=== PATIENT | female | born 1970 | race Caucasian/White ===

== ENCOUNTER 2017-10-31 19:27 | Emergency (ER) | payer MEDICAID ==
[~2017-10-31] VITALS: Ht 157.5 cm; Wt 113.4 kg
[2017-10-31 19:29] VITALS: BP_SYST 171
[2017-10-31] MEDS ORDERED: IPRATROPIUM/ALBUTEROL SULFATE 3 ML AMPUL.NEB INH ONE (19:30)
[2017-10-31] MEDS ORDERED: methylPREDNISolone SOD SUCC/PF 62.5 MG/ML VIAL IM ONE (19:30)
[2017-10-31] MEDS ORDERED: MAGNESIUM SULFATE 50 ML IV ONE (20:15)
[2017-10-31] MEDS ORDERED: IPRATROPIUM BROM 0.5 MG/2.5 ML VIAL.NEB (ATROVENT) IH ONE (20:15)
[2017-10-31] MEDS ORDERED: ALBUTEROL SULFATE 0.083% 2.5 MG/3 ML VIAL.NEB IH ONE (20:15)
[2017-10-31 21:48] VITALS: BP_SYST 142
== END 2017-10-31 21:48 | disposition home or self-care (01) ==
LOC: SED 19:27
DX: J45.901 Unspecified asthma with (acute) exacerbation (principal); R03.0 Elevated blood-pressure reading, without diagnosis of hypertension
CPT/HCPCS: 94640; 96365; 96366; 96372; 99285; J2930; J3475

== ENCOUNTER 2018-01-16 20:49 | Emergency (ER) | payer MEDICAID ==
[~2018-01-16] VITALS: Ht 154.9 cm; Wt 111.1 kg
[2018-01-16 20:52] VITALS: BP_SYST 162
[2018-01-16] MEDS ORDERED: methylPREDNISolone SOD SUCC/PF 62.5 MG/ML VIAL IM ONE (22:15)
[2018-01-16] MEDS ORDERED: PREDNISONE 20 MG TABLET PO ONE (22:15)
[2018-01-16] MEDS ORDERED: IPRATROPIUM BROM 0.5 MG/2.5 ML VIAL.NEB (ATROVENT) IH ONE (22:15)
[2018-01-16] MEDS ORDERED: LevALBUTEROL HCL 1.25 MG/0.5 ML *CONC.* VIAL.NEB (XOPENEX CONC.) INH ONE (22:15)
[2018-01-16 22:58] VITALS: BP_SYST 148
== END 2018-01-16 22:58 | disposition home or self-care (01) ==
LOC: SED 20:49
DX: J45.901 Unspecified asthma with (acute) exacerbation (principal); F17.200 Nicotine dependence, unspecified, uncomplicated; F31.9 Bipolar disorder, unspecified; I10 Essential (primary) hypertension; Z90.49 Acquired absence of other specified parts of digestive tract
CPT/HCPCS: 94640; 96372; 99283; J2930; J7512; J7612

== ENCOUNTER 2018-03-31 10:07 | Emergency (ER) | payer MEDICAID ==
[~2018-03-31] VITALS: Ht 154.9 cm; Wt 109.8 kg
[2018-03-31 10:07] VITALS: BP_SYST 139
[2018-03-31 10:39] LABS: BASOPHILS # (AUTO) 0.1 K/uL (0.0-0.2); EOSINOPHILS # (AUTO) 0.2 K/uL (0.0-0.4); LYMPHOCYTES # (AUTO) 1.3 K/uL (1.0-5.5); MEAN CORPUSCULAR VOLUME 75 fL (79.0-98.0); NEUTROPHILS # (AUTO) 5.1 K/uL (1.8-7.7)
[2018-03-31 10:51] LABS: CALCIUM 8.6 mg/dL (8.4-11.0); CREATININE 0.65 mg/dL (0.55-1.30); POTASSIUM 3.6 mmol/L (3.5-5.1)
[2018-03-31 10:53] LABS: BASOPHILS % (AUTO) 0.7 % (0.0-2.0); EOSINOPHILS % (AUTO) 2.5 % (0.0-4.0); HEMATOCRIT 33.6 % (36-48); HEMOGLOBIN 10.7 g/dL (12.0-16.0); LYMPHOCYTES % (AUTO) 18.4 % (20.5-51.5); MEAN CORPUSCULAR HEMOGLOBIN 24 pg (27-31); MEAN CORPUSCULAR HGB CONC 32 % (32-36); MONOCYTES # (AUTO) 0.5 K/uL (0.0-1.0); MONOCYTES % (AUTO) 6.3 % (1.7-9.3); NEUTROPHILS % (AUTO) 72.1 % (40.0-70.0); PLATELET COUNT (AUTO) 610 K/uL (130-430); RED CELL DISTRIBUTION WIDTH 16.4 % (9.0-15.0); WHITE BLOOD COUNT (AUTO) 7.2 K/uL (4.8-10.8)
[2018-03-31 10:58] LABS: ALBUMIN 3.1 g/dL (3.4-4.8); TOTAL BILIRUBIN 0.1 mg/dL (0.0-1.0)
[2018-03-31] MEDS ORDERED: IPRATROPIUM BROM 0.5 MG/2.5 ML VIAL.NEB (ATROVENT) IH ONE (11:00)
[2018-03-31] MEDS ORDERED: PREDNISONE 20 MG TABLET PO ONE (11:00)
[2018-03-31] MEDS ORDERED: ALBUTEROL SULFATE 0.083% 2.5 MG/3 ML VIAL.NEB IH ONE (11:00)
[2018-03-31 11:37] LABS: BILIRUBIN,URINE NEGATIVE (NEGATIVE); BLOOD, URINE 2+ (NEGATIVE); CLARITY/URINE HAZY (CLEAR); COLOR,URINE YELLOW (YELLOW); GLUCOSE,URINE NEGATIVE (NEGATIVE); KETONES,URINE NEGATIVE (NEGATIVE); LEUKOCYTE ESTERASE ,URINE NEGATIVE (NEGATIVE); NITRITE, URINE NEGATIVE (NEGATIVE); PH,URINE 7.5 (5.0-8.0); PROTEIN URINE NEGATIVE (NEGATIVE); UROBILINOGEN,URINE 0.2 (0.2-1.0)
[2018-03-31 11:48] LABS: BACTERIA,URINE MODERATE /HPF (None Seen); MUCUS,URINE 1+ /LPF (None Seen); WBC,URINE 0-3 /HPF (0-3)
[2018-03-31 11:56] VITALS: BP_SYST 131
== END 2018-03-31 11:56 | disposition home or self-care (01) ==
LOC: SED 10:07
DX: N76.0 Acute vaginitis (principal); J45.901 Unspecified asthma with (acute) exacerbation; F31.9 Bipolar disorder, unspecified; Z97.5 Presence of (intrauterine) contraceptive device; Z90.49 Acquired absence of other specified parts of digestive tract; Z87.891 Personal history of nicotine dependence
CPT/HCPCS: 36415; 80053; 81000; 85025; 87086; 94640; 99284; J7512; J7613

== ENCOUNTER 2018-06-05 21:12 | Emergency (ER) | payer MEDICAID ==
[~2018-06-05] VITALS: Ht 154.9 cm; Wt 110.2 kg
[2018-06-05 21:21] VITALS: BP_SYST 153
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
--- NOTE | 2018-06-05 21:21 | NUR ---
Pt placed to ER bed 03, to bed teacher. Pt states that she has been experiencing SOB with asthma attack progressively worsening x 3 days. Pt also states that she has been coughing up green sputum, inspiratory wheezing noted, diminished to bases. Pt speaks in clear sentences, SPO2 98%.
--- NOTE | 2018-06-05 21:28 | NUR ---
Dr. Aleman at bedside.
[2018-06-05] MEDS ORDERED: IPRATROPIUM/ALBUTEROL SULFATE 3 ML AMPUL.NEB (DUONEB) INH ONE ×2 (21:30→22:45)
[2018-06-05] MEDS ORDERED: methylPREDNISolone SOD SUCC/PF 62.5 MG/ML VIAL IM ONE (21:30)
--- NOTE | 2018-06-05 21:41 | NUR ---
RT at bedside. Alphonso tx in progress.
--- NOTE | 2018-06-05 22:45 | NUR ---
Pt with mild inspiratory wheezes. RT at bedside, another Neb tx in progress. Pt verbalizes improvement in respirations.
--- NOTE | 2018-06-05 23:00 | NUR ---
Pt states that she feels much better and feels like she can breathe better. VSS. SPO2 98% RA.
[2018-06-05 23:18] VITALS: BP_SYST 144
--- NOTE | 2018-06-05 23:18 | NUR ---
Patient given written and verbal discharge instructions and verbalizes understanding. ER MD Lazar discussed with patient the results and treatment provided. Patient in stable condition. ID arm band removed. Rx of Prednisone given. Patient educated on pain management and to follow up with PMD. Pain Scale 0. Opportunity for questions provided and answered. Medication side effect fact sheet provided.
== END 2018-06-05 23:18 | disposition home or self-care (01) ==
LOC: SED 21:12
DX: J45.901 Unspecified asthma with (acute) exacerbation (principal); R03.0 Elevated blood-pressure reading, without diagnosis of hypertension; F31.9 Bipolar disorder, unspecified
CPT/HCPCS: 94640; 96372; 99284; J2930; J7620

== ENCOUNTER 2018-06-26 05:05 | Emergency (ER) | payer MEDICAID ==
[~2018-06-26] VITALS: Ht 154.9 cm; Wt 110.2 kg
--- NOTE | 2018-06-26 05:15 | NUR ---
Patient to ER bed 8 to gown for evaluation. Side rails up. Report given from JAMES Weldon.
--- NOTE | 2018-06-26 05:20 | NUR ---
ER Dr.Au Hernandez at bedside examining patient.
[2018-06-26 05:25] VITALS: BP_SYST 150
--- NOTE | 2018-06-26 05:25 | NUR ---
Pt came in complaining of nausea and vomitting which started early this morning around 0000. Pt states that she ate spaghetti and pork sausage last night for dinner and there is a possibility that the meat may not have been cooked all the way. Pt says that she feels chills, but no fever. Pt's is at bedside and says that he ate the same thing but does not feel sick. History of asthma and bipolar. No other complaints/injuries noted. Will cont. to monitor.
[2018-06-26] MEDS ORDERED: NACL 0.9% 1,000 ML IV ONE ×2 (05:38→06:51)
[2018-06-26] MEDS ORDERED: ONDANSETRON HCL 4 MG/2 ML VIAL IVP ONE ×2 (05:45→07:30)
[2018-06-26] MEDS ORDERED: MORPHINE 4 MG/ML INJ. SYRINGE IVP ONE ×2 (05:45→07:45)
--- NOTE | 2018-06-26 06:08 | NUR ---
Pt medicated with morphine IVP, zofran IVP and fluids per MD order. Tolerating well. Will cont. to monitor.
[2018-06-26 06:26] LABS: BASOPHILS # (AUTO) 0.1 K/uL (0.0-0.2); BASOPHILS % (AUTO) 0.4 % (0.0-2.0); EOSINOPHILS # (AUTO) 0.1 K/uL (0.0-0.4); EOSINOPHILS % (AUTO) 0.6 % (0.0-4.0); HEMOGLOBIN 11.3 g/dL (12.0-16.0); LYMPHOCYTES # (AUTO) 0.4 K/uL (1.0-5.5); LYMPHOCYTES % (AUTO) 3.1 % (20.5-51.5); MEAN CORPUSCULAR HEMOGLOBIN 24 pg (27-31); MEAN CORPUSCULAR HGB CONC 31 % (32-36); MEAN CORPUSCULAR VOLUME 75 fL (79.0-98.0); MONOCYTES # (AUTO) 0.4 K/uL (0.0-1.0); MONOCYTES % (AUTO) 2.8 % (1.7-9.3); NEUTROPHILS # (AUTO) 12.4 K/uL (1.8-7.7); NEUTROPHILS % (AUTO) 93.1 % (40.0-70.0); PLATELET COUNT (AUTO) 707 K/uL (130-430); RED BLOOD CELL COUNT(AUTO) 4.79 MIL/uL (4.2-6.2); RED CELL DISTRIBUTION WIDTH 16.2 % (9.0-15.0); WHITE BLOOD COUNT (AUTO) 13.4 K/uL (4.8-10.8)
[2018-06-26 06:37] LABS: CALCIUM 9.2 mg/dL (8.4-11.0); CREATININE 0.72 mg/dL (0.55-1.30); POTASSIUM 3.4 mmol/L (3.5-5.1)
[2018-06-26 06:43] LABS: ALBUMIN 3.4 g/dL (3.4-4.8); TOTAL BILIRUBIN 0.5 mg/dL (0.0-1.0)
--- NOTE | 2018-06-26 07:08 | NUR ---
Report given to Noah RAMIREZ and Delonte RAMIREZ
[2018-06-26] MEDS ORDERED: KETOROLAC TROMETHAMINE 30 MG VIAL IVP ONE (07:15)
--- NOTE | 2018-06-26 07:26 | NUR ---
Pt medicated for 8/10 abdominal pain. Pt tolerated medication administration well, will reassess pain at a later time.
--- NOTE | 2018-06-26 08:24 | NUR ---
Dr. Ventura at bedside examining pt.
[2018-06-26] MEDS ORDERED: fentaNYL CITRATE/PF 100 MCG/2 ML AMP IVP ONE (08:30)
[2018-06-26 08:40] LABS: BARBITURATE, URINE NEGATIVE (NEG <=200); BENZODIAZEPINE, URINE NEGATIVE (NEG <=150); CANNABINOID, URINE POSITIVE (NEG <=50); COCAINE, URINE NEGATIVE (NEG <=150); METHAMPHETAMINES SCREEN,URINE POSITIVE (NEG <=500); OPIATE, URINE NEGATIVE (NEG <=100); PHENCYCLIDINE SCREEN,URINE NEGATIVE (NEG <=25); UR TRICYCLIC ANTIDEPRESSANTS NEGATIVE (NEG <=300); URINE AMPHETAMINE POSITIVE (NEG <=500); URINE METHADONE NEGATIVE (NEG <=200); URINE OXYCODONE SCREEN NEGATIVE (NEG <=100); URINE PROPOXYPHENE SCREEN NEGATIVE (NEG <=300)
--- NOTE | 2018-06-26 09:00 | NUR ---
Pt resting queitly in bed, no acute distress noted. Will continue to monitor pt condition.
--- NOTE | 2018-06-26 09:11 | NUR ---
DR PENA IN SPEAKING WITH PT RE: HOME CARE, DIET AND FOLLOW UP.
[2018-06-26] MEDS ORDERED: DICYCLOMINE HCL 20 MG/2 ML AMP IM ONE (09:15)
--- NOTE | 2018-06-26 09:30 | NUR ---
Dr. Ventura states that previously ordered second liter of NS not needed at this time.
[2018-06-26 09:32] LABS: BILIRUBIN,URINE NEGATIVE (NEGATIVE); BLOOD, URINE NEGATIVE (NEGATIVE); CLARITY/URINE SL HAZY (CLEAR); COLOR,URINE YELLOW (YELLOW); GLUCOSE,URINE NEGATIVE (NEGATIVE); KETONES,URINE NEGATIVE (NEGATIVE); LEUKOCYTE ESTERASE ,URINE NEGATIVE (NEGATIVE); NITRITE, URINE NEGATIVE (NEGATIVE); PH,URINE 8.5 (5.0-8.0); PROTEIN URINE NEGATIVE (NEGATIVE); UROBILINOGEN,URINE 0.2 (0.2-1.0)
[2018-06-26 09:45] VITALS: BP_SYST 150
--- NOTE | 2018-06-26 09:45 | NUR ---
Patient given written and verbal discharge instructions and verbalizes understanding. ER MD discussed with patient the results and treatment provided. Patient in stable condition. ID arm band removed. IV catheter removed intact and dressing applied, no active bleeding. Rx of Levaquin, Zofran, [place], and Flagyl given. Patient educated on pain management and to follow up with PMD. Pain Scale 2/10. Pt was given pain medication while she was here and is prescribed Trenton for pain management at home. Opportunity for questions provided and answered. Medication side effect fact sheet provided.
== END 2018-06-26 09:45 | disposition home or self-care (01) ==
LOC: SED 05:05
DX: R11.10 Vomiting, unspecified (principal); R19.7 Diarrhea, unspecified; J45.909 Unspecified asthma, uncomplicated; F31.9 Bipolar disorder, unspecified; Z90.89 Acquired absence of other organs
CPT/HCPCS: 36415; 80053; 80307; 81003; 81025; 83690; 85025; 96361; 96374; 96375; 96376; 99284; J0500; J1885; J2270; J2405; J3010; J7030

== ENCOUNTER 2019-02-15 01:41 | Emergency (ER) | payer MEDICAID ==
[~2019-02-15] VITALS: Ht 154.9 cm; Wt 110.7 kg
[2019-02-15 01:55] VITALS: BP_SYST 148
[2019-02-15] MEDS ORDERED: IPRATROPIUM/ALBUTEROL SULFATE 3 ML AMPUL.NEB (DUONEB) INH ONE (02:30)
[2019-02-15] MEDS ORDERED: NACL 0.9% 1,000 ML IV ONE (02:30)
[2019-02-15] MEDS ORDERED: MAGNESIUM SULFATE 50 ML IV ONE (02:30)
[2019-02-15] MEDS ORDERED: methylPREDNISolone SOD SUCC/PF 62.5 MG/ML VIAL IVP ONE (02:30)
[2019-02-15] MEDS ORDERED: BECL10.62 IH (03:18)
[2019-02-15] MEDS ORDERED: ALBU8.5H8 INH (03:19)
[2019-02-15] MEDS ORDERED: ALBU2.5V7 INH (03:19)
[2019-02-15 04:10] VITALS: BP_SYST 132
== END 2019-02-15 04:10 | disposition home or self-care (01) ==
LOC: SED 01:41
DX: J45.901 Unspecified asthma with (acute) exacerbation (principal); I10 Essential (primary) hypertension; F31.9 Bipolar disorder, unspecified; Z79.899 Other long term (current) drug therapy
CPT/HCPCS: 94640; 96365; 96366; 96375; 99283; J2930; J3475; J7030; J7620